=== PATIENT | male | born 1970 | race Caucasian/White ===

== ENCOUNTER 2016-10-09 17:56 | Emergency (ER) | payer OTHER ==
[2016-10-09 19:13] LABS: HEMOGLOBIN 12.6 gm/dl (14.0-17.5); RED BLOOD COUNT 4.18 M/UL (4.20-5.50)
[2016-10-09 19:35] LABS: BUN/CREATININE RATIO 18 (0-10)
== END 2016-10-09 22:00 | disposition home or self-care (01) ==
LOC: ER1 17:56
PROVIDERS: Physician Assistant
DX: N50.811 Right testicular pain (principal); N50.82 Scrotal pain; E11.40 Type 2 diabetes mellitus with diabetic neuropathy, unspecified; F17.210 Nicotine dependence, cigarettes, uncomplicated; Z88.1 Allergy status to other antibiotic agents; Z79.4 Long term (current) use of insulin; Z79.899 Other long term (current) drug therapy
CPT/HCPCS: 36415; 76870; 80053; 81001; 83690; 85025; 87086; 96361; 96374; 99284; J2405

== ENCOUNTER 2017-02-05 02:07 | Emergency (ER) | payer OTHER ==
[2017-02-05 03:52] LABS: HEMOGLOBIN 11.9 gm/dl (14.0-17.5); RED BLOOD COUNT 3.92 M/UL (4.20-5.50)
[2017-02-05 04:04] LABS: BUN/CREATININE RATIO 15 (0-10)
== END 2017-02-05 07:50 | disposition home or self-care (01) ==
LOC: ER1 02:07
PROVIDERS: Student in an Organized Health Care Education/Training Program
DX: S70.262A Insect bite (nonvenomous), left hip, initial encounter (principal); R11.2 Nausea with vomiting, unspecified; F17.210 Nicotine dependence, cigarettes, uncomplicated; E11.9 Type 2 diabetes mellitus without complications; Z88.1 Allergy status to other antibiotic agents; Z88.5 Allergy status to narcotic agent; Z79.4 Long term (current) use of insulin; W57.XXXA Bitten or stung by nonvenomous insect and other nonvenomous arthropods, initial encounter
CPT/HCPCS: 36415; 80053; 81001; 82150; 83690; 85025; 87086; 96361; 96374; 99284; J2405

== ENCOUNTER → 2021-08-14 | Outpatient (CLI) | payer OTHER ==
[~2021-08-14] MED LIST: HYDROCODON-ACE1 EAC2 PO; HYDROCODON-ACE1 EAC4 PO; IBUPROFEN600 MG PO
== END ==
LOC: KOH-I 12:59
DX: M54.50 Low back pain, unspecified (principal); M47.816 Spondylosis without myelopathy or radiculopathy, lumbar region
CPT/HCPCS: 72040; 72070; 72100

== ENCOUNTER → 2021-10-26 | Outpatient (CLI) | payer OTHER | LOC: US 07:10 | DX: K74.00 Hepatic fibrosis, unspecified (principal); M54.50 Low back pain, unspecified; R20.0 Anesthesia of skin; E03.9 Hypothyroidism, unspecified; R25.2 Cramp and spasm; D69.6 Thrombocytopenia, unspecified | CPT/HCPCS: 76705 ==

== ENCOUNTER → 2021-11-09 | Outpatient (CLI) | payer OTHER | LOC: KOH-I 08:16 | DX: M54.50 Low back pain, unspecified (principal); R20.0 Anesthesia of skin; E03.9 Hypothyroidism, unspecified; R25.2 Cramp and spasm; D69.6 Thrombocytopenia, unspecified; K74.00 Hepatic fibrosis, unspecified; M51.36 Other intervertebral disc degeneration, lumbar region | CPT/HCPCS: 72148 ==

== ENCOUNTER → 2022-02-08 | Outpatient (CLI) | payer OTHER | LOC: MRI 13:50 | DX: K83.8 Other specified diseases of biliary tract (principal) | CPT/HCPCS: 74181 ==

== ENCOUNTER → 2022-02-15 | Outpatient (CLI) | payer OTHER ==
[2022-02-16 11:14] LABS: ALPHA-1-ANTITRYPSIN, SERUM 168 mg/dL (101-187)
[2022-02-16 14:15] LABS: MITOCHONDRIAL (M2) ANTIBODY 24.3 Units (0.0-20.0)
[2022-02-19 13:09] LABS: HBSAG SCREEN Negative (Negative); HCV AB >11.0 (0.0-0.9); HCV LOG10 5.364 (.); HEP A AB, IGM Negative (Negative); HEP B CORE AB, IGM Negative (Negative); HEPATITIS C QUANTITATION 231000 IU/mL (.)
== END ==
LOC: LAB 09:37
PROVIDERS: Internal Medicine Gastroenterology
DX: K83.8 Other specified diseases of biliary tract (principal)
CPT/HCPCS: 36415; 80074; 80076; 82103; 82728; 83540; 83550; 86038

== ENCOUNTER → 2022-02-28 | Outpatient (CLI) | payer OTHER ==
[2022-03-02 11:14] LABS: IMMUNOGLOBULIN G, QN, SERUM 890 mg/dL (603-1613)
[2022-03-02 14:14] LABS: ACTIN (SMOOTH MUSCLE) ANTIBODY 12 Units (0-19)
[2022-03-02 15:14] LABS: LIVER-KIDNEY MICROSOMAL AB <1.0 Units (0.0-20.0)
[2022-03-02 17:08] LABS: CERULOPLASMIN 25.1 mg/dL (16.0-31.0)
== END ==
LOC: LAB 15:07
PROVIDERS: Internal Medicine Gastroenterology
DX: R94.5 Abnormal results of liver function studies (principal)
CPT/HCPCS: 36415; 82390; 82784; 83516; 86376; 87902